=== PATIENT | female | born 1960 | race Caucasian/White ===

== ENCOUNTER 2017-03-26 12:38 | Inpatient (IN) | payer OTHER ==
[2017-03-26 14:12] VITALS: BMI 28.3
--- NOTE | 2017-03-26 14:50 | HP ---
CIWA Score - CIWA Score Nausea/Vomitin-Mild Nausea/No Vomiting Muscle Tremors: 4-Moderate,w/Arms Extend Anxiety: 4-Mod. Anxious/Guarded Agitation: 1-Slight > Activity Paroxysmal Sweats: 1-Minimal Palms Moist Orientation: 1-Uncertain about Date Tacttile Disturbances: 1-Very Mild Itch/Numbness Auditory Disturbances: 1-Very Mild Visual Disturbances: 1-Very Mild Sensitivity Headache: 1-Very Mild CIWA-Ar Total Score: 16 Admission ROS S - HPI Chief Complaint: I need detox from alcohol , from crack and dope. I don't want to lose myapartment. Allergies/Adverse Reactions: Allergies Allergy/AdvReac Type Severity Reaction Status Date / Time No Known Allergies Allergy Verified 03/26/17 14:39 History of Present Illness: 56 yo woman here for detox from alcohol - using heroin but on [facility] program - [facility] [phone] - patient did not bring bottle from program nor was she dosed today - only on 12mg - states 'it is okay' if we cannot give her any methadone. No seizure but does have black outs. Using walker due to knee problems .Although patient states she is prescribed klonopin and percocet, neither show up in the [facility]. Exam Limitations: Clinical Condition - Ebola screening Have you traveled outside of the country in the last 21 days: No Have you had contact with anyone from an Ebola affected area: No Have you been sick,other than usual withdrawal symptoms: No Do you have a fever: No - Review of Systems Constitutional: Loss of Appetite, Changes in sleep, Weakness EENT: reports: Blurred Vision Respiratory: reports: No Symptoms reported Cardiac: reports: No Symptoms Reported GI: reports: Nausea, Poor Appetite : reports: Dysuria Musculoskeletal: reports: Joint Pain, Joint Stiffness (knees) Integumentary: reports: No Symptoms Reported Neuro: reports: Headache Endocrine: reports: No Symptoms Reported Hematology: reports: No Symptoms Reported Psychiatric: reports: Judgement Intact, Mood/Affect Appropiate, Anxious Other Systems: Reviewed and Negative Patient History - Patient Medical History Hx Anemia: No Hx Asthma: Yes Hx Chronic Obstructive Pulmonary Disease (COPD): No Hx Cancer: No Hx Cardiac Disorders: No Hx Congestive Heart Failure: No Hx Hypertension: Yes Hx Hypercholesterolemia: No Hx Pacemaker: No HX Cerebrovascular Accident: No Hx Seizures: No Hx Dementia: No Hx Diabetes: Yes (oral meds) Hx Gastrointestinal Disorders: No Hx Liver Disease: No Hx Genitourinary Disorders: No Hx Sexually Transmitted Disorders: No Hx Renal Disease (ESRD): No Hx Thyroid Disease: No Hx Human Immunodeficiency Virus (HIV): Yes Hx Hepatitis C: Yes (not treated) Hx Depression: Yes (with anxiety, last hospitalized 2015) Hx Suicide Attempt: No Hx Bipolar Disorder: No Hx Schizophrenia: Yes (sometimes hears voices) - Patient Surgical History Past Surgical History: Yes Hx Orthopedic Surgery: Yes (bilateral knee replacement 1999- ) - PPD History Previous Implant?: Yes Implanted On Prior [facility] Admission?: Yes PPD to be Administered?: Yes - Reproductive History Patient is a Female of Child Bearing Age (11 -55 yrs old): Yes - Smoking Cessation Smoking history: Current every day smoker Have you smoked in the past 12 months: Yes Aproximately how many cigarettes per day: 20 Initiated information on smoking cessation: Yes 'Breaking Loose' booklet given: 03/26/17 (give on floor) - Substance & Tx. History Hx Alcohol Use: Yes Hx Substance Use: Yes Substance Use Type: Alcohol, Cocaine - Substances Abused Alcohol Route: Oral Amount used: seven 24 oz beer, 1/2 pint liquor Age of first use: 55 Date of Last Use: 03/25/17 Cocaine Route: Inhalation Frequency: 3-6 times per week Amount used: $50 Age of first use: 56 Date of Last Use: 03/25/17 Heroin Route: Oral Frequency: 3-6 times per week Amount used: 8 bags Age of first use: 56 Date of Last Use: 03/25/17 Family Disease History - Family Disease History Family Disease History: Diabetes: Brother (three - living ), Sister (one - living ), Heart Disease: Father (), Brother, [place]: Mother (living, HIV), Other: Father, Mother, Brother, Sister Admission Physical Exam BHS - Vital Signs Vital Signs: Vital Signs - 24 hr 03/26/17 14:08 Temperature 97.4 F L Pulse Rate 84 Respiratory 18 Rate Blood Pressure 108/67 - Physical General Appearance: Yes: Nourished, Appropriately Dressed, Mild Distress, Anxious HEENTM: Yes: EOMI, Hearing grossly Normal, Normal ENT Inspection, Normocephalic , Normal Voice Respiratory: Yes: Normal Breath Sounds, No Respiratory Distress Neck: Yes: No masses,lesions,Nodules, Supple Breast: Yes: Breast Exam Deferred Cardiology: Yes: Regular Rhythm, Regular Rate Abdominal: Yes: Soft Genitourinary: Yes: Frequency Back: Yes: Normal Inspection Musculoskeletal: Yes: Gait Steady, Joint Stiffness (knees), Other (using walker) Extremities: Yes: Other (mild swelling in knees) Neurological: Yes: Fully Oriented, Alert, Normal Mood/Affect, Normal Response Integumentary: Yes: Normal Color, Warm Lymphatic: Yes: Within Normal Limits - Diagnostic (1) Alcohol dependence with uncomplicated withdrawal Current Visit: Yes Status: Acute (2) Crack cocaine use Current Visit: Yes Status: Chronic (3) Methadone maintenance therapy patient Current Visit: Yes Status: Chronic Comment: [facility] in [place] - did not get dose today, does not have her bottles [phone] (4) Asthma Current Visit: Yes Status: Acute Qualifiers: Asthma severity: moderate (5) Diabetes mellitus treated with oral medication Current Visit: Yes Status: Chronic (6) HIV (human immunodeficiency virus infection) Current Visit: Yes Status: Chronic (7) History of bilateral knee replacement Current Visit: Yes Status: Chronic (8) Nicotine dependence Current Visit: Yes Status: Chronic Qualifiers: Nicotine product type: cigarettes Substance use status: uncomplicated Qualified Code(s): F17.210 - Nicotine dependence, cigarettes, uncomplicated Cleared for Admission [facility] - Detox or Rehab [facility] Level of Care: Medically Managed Detox Regimen/Protocol: Librium [facility] Breath Alcohol Content Breath Alcohol Content: 0 Urine Pregancy Test - Result Urine Test Results: Negative- NO Line Present Urine Drug Screen - Results Drug Screen Negative: No Urine Drug Screen Results: FAY-Cocaine, OPI-Opiates, MTD-Methadone
[2017-03-26] MEDS ORDERED: hydrOXYzine PAMOATE 25 MG CAPSULE (FP) PO PRN (15:07)
[2017-03-26] MEDS ORDERED: guaiFENesin/D-METHORPHAN HB 10 ML UNIT-DOSE CUPS PO PRN (15:07)
[2017-03-26] MEDS ORDERED: MAGNESIUM CITRATE 300 ML BOTTLE PO PRN (15:07)
[2017-03-26] MEDS ORDERED: MENTHOL/PHENOL 1 EACH UD MM PRN (15:07)
[2017-03-26] MEDS ORDERED: chlordiazePOXIDE HCL 25 MG CAPSULE PO PRN (15:07)
[2017-03-26] MEDS ORDERED: P-EPHED 60MG/TRIPROLIDI 2.5MG TABLET PO PRN (15:07)
[2017-03-26] MEDS ORDERED: LOPERAMIDE HCL 2 MG CAPSULE PO PRN (15:07)
[2017-03-26] MEDS ORDERED: MAGNESIUM HYDROX 2400MG/30ML ORAL SUSPENSION 30 ML CUP PO PRN (15:07)
[2017-03-26] MEDS ORDERED: MAG HYDROX/AL HYDROX/SIMETH 30 ML UNIT-DOSE CUP PO PRN (15:07)
[2017-03-26] MEDS ORDERED: chlordiazePOXIDE HCL 25 MG CAPSULE PO ONE (15:07)
[2017-03-26] MEDS ORDERED: ALBUTEROL SO4 18 GM HFA INHALER IH PRN (15:09)
[2017-03-26] MEDS ORDERED: metFORMIN HCL 500 MG TABLET (FP) PO SCH (15:15)
[2017-03-26 21:34] LABS: URINE APPEARANCE SLCLOUDY; URINE BILIRUBIN NEGATIVE (NEGATIVE); URINE BLOOD NEGATIVE (NEGATIVE); URINE COLOR YELLOW; URINE GLUCOSE (UA) NEGATIVE (NEGATIVE); URINE KETONE NEGATIVE (NEGATIVE); URINE LEUK ESTERASE NEGATIVE (NEGATIVE); URINE NITRITE NEGATIVE (NEGATIVE); URINE PROTEIN NEGATIVE (NEGATIVE)
[2017-03-26] MEDS: EMTRICITAB/RILPIVIRINE/TENOFOV 1 EACH TABLET PO SCH (22:14)
[2017-03-26] MEDS: chlordiazePOXIDE HCL 25 MG CAPSULE PO SCH (22:15)
[2017-03-26] MEDS: METHYL SALICYLATE/MENTHOL OINT 30 GM TUBE TP SCH (22:15)
[2017-03-26] MEDS: THIAMINE HCL 100 MG TABLET (FP) PO SCH (22:15)
[2017-03-26] MEDS: NICOTINE 21 MG/24 HOURS TOPICAL PATCH TD SCH (22:16)
[2017-03-27] MEDS: IBUPROFEN 400 MG TABLET (FP) PO PRN (05:19)
[2017-03-27] MEDS: metFORMIN HCL 500 MG TABLET (FP) PO SCH (06:20)
[2017-03-27] MEDS: chlordiazePOXIDE HCL 25 MG CAPSULE PO SCH ×4 (06:23→22:22)
[2017-03-27 10:06] LABS: HEMATOCRIT 38.6 % (32.4-45.2); MCH 28.6 pg (25.7-33.7); MCHC 33.6 g/dl (32.0-36.0); MEAN PLT VOLUME 8.6 fl (7.5-11.1); PLATELET COUNT 67 K/MM3 (134-434); RBC 4.54 M/mm3 (3.60-5.2); RDW 15.3 % (11.6-15.6); WHITE BLOOD COUNT 4.5 K/mm3 (4.0-10.0)
[2017-03-27 10:32] LABS: CHLORIDE 107 mmol/L (98-107); POTASSIUM 3.7 mmol/L (3.5-5.1); SODIUM 141 mmol/L (136-145)
[2017-03-27 10:40] LABS: ALK PHOS 81 U/L (45-117); ANION GAP 7 (8-16); BILIRUBIN,TOTAL 0.6 mg/dL (0.2-1.0); BLOOD UREA NITROGEN 8 mg/dL (7-18); CALCIUM 8.2 mg/dL (8.5-10.1); CO2 27 mmol/L (21-32); CREATININE 0.6 mg/dL (0.55-1.02); GLUCOSE,RANDOM 128 mg/dL (74-106); SGOT/AST 25 U/L (15-37); SGPT/ALT 33 U/L (12-78); TOT PROT 6.9 g/dl (6.4-8.2)
[2017-03-27] MEDS: METHYL SALICYLATE/MENTHOL OINT 30 GM TUBE TP SCH ×2 (11:00→22:22)
[2017-03-27] MEDS: PRENATAL VITAMINS W/ FOLIC ACID TABLET (FP) PO SCH (11:00)
[2017-03-27] MEDS: NICOTINE 21 MG/24 HOURS TOPICAL PATCH TD SCH (11:00)
[2017-03-27] MEDS: EMTRICITAB/RILPIVIRINE/TENOFOV 1 EACH TABLET PO SCH (11:00)
--- NOTE | 2017-03-27 11:03 | CONSULT ---
[facility] Psychiatric Consult - Data Date of interview: 03/27/17 Admission source: Self-referred Identifying data: Ms Trejo is a 56 years old female Substance Abuse History: Reports history of alcohol, heroin and cocaine use. Refer to addiction counselor's note for furtherv information Medical History: Significant for bronchial asthma, hypertension, type 2 diabetes mellitus, hepatitis C, HIV, arthritis and history of orthosurgery for bilateral knee replacement in 1999. She is on methadone 12 mg/day. Smokes cigarettes 1ppd Psychiatric History: Patient reports history of depression and anxiety. Reports receiving psychiatric outpatient services at one of [facility] in the [place] and he is prescribed Seroquel 100 mg po HS and Ambien 10 mg po HS. Denies history of previous psychiatric hospitalization or suicidal attempt. At present , reports feeling depressed and sleeping poorly Physical/Sexual Abuse/Trauma History: Denies history of physical, sexual abuse Additional Comment: Denies criminal history Mental Status Exam - Mental Status Exam Alert and Oriented to: Place, Person Cognitive Function: Fair Patient Appearance: Well Groomed Mood: Depressed Patient Behavior: Cooperative Speech Pattern: Clear Voice Loudness: Normal Thought Process: Intact, Goal Oriented Thought Disorder: Not Present Hallucinations: Denies Suicidal Ideation: Denies Homicidal Ideation: Denies Insight/Judgement: Poor Sleep: Poorly Appetite: Poor Muscle strength/Tone: Normal Gait/Station: Normal Psychiatric Findings - Problem List ([place] 1, 2,3) (1) Substance induced mood disorder Current Visit: Yes Status: Acute (2) MDD (major depressive disorder) Current Visit: Yes Status: Ruled-out (3) Substance-induced sleep disorder Current Visit: Yes Status: Acute (4) Alcohol dependence with uncomplicated withdrawal Current Visit: Yes Status: Acute (5) Cocaine dependence Current Visit: Yes Status: Acute (6) Opioid dependence on agonist therapy Current Visit: Yes Status: Chronic (7) Nicotine dependence Current Visit: Yes Status: Chronic Qualifiers: Nicotine product type: cigarettes Substance use status: uncomplicated Qualified Code(s): F17.210 - Nicotine dependence, cigarettes, uncomplicated (8) Asthma Current Visit: Yes Status: Acute Qualifiers: Asthma severity: moderate (9) Diabetes mellitus treated with oral medication Current Visit: Yes Status: Chronic (10) HIV (human immunodeficiency virus infection) Current Visit: Yes Status: Chronic (11) History of bilateral knee replacement Current Visit: Yes Status: Chronic - Initial Treatment Plan Initial Treatment Plan: 1) Continue Seroquel 100 mg po HS and Ambien 10 mg po HS prn for insomnia. 2) Continue inpatient detoxification
--- NOTE | 2017-03-27 13:06 | PN ---
[facility] CIWA - CIWA Score Nausea/Vomitin-No Nausea/No Vomiting Muscle Tremors: 3 Anxiety: 3 Agitation: 3 Paroxysmal Sweats: 1-Minimal Palms Moist Orientation: 0-Oriented Tacttile Disturbances: 0-None Auditory Disturbances: 0-None Visual Disturbances: 0-None Headache: 0-None Present CIWA-Ar Total Score: 10 S Progress Note (SOAP) Subjective: sweat anxiety tremor Objective: 03/27/17 13:06 Vital Signs Temperature 98.1 F 03/27/17 10:00 Pulse Rate 74 03/27/17 10:00 Respiratory Rate 19 03/27/17 10:00 Blood Pressure 117/76 03/27/17 10:00 O2 Sat by Pulse Oximetry (%) Laboratory Last Values WBC 4.5 K/mm3 (4.0-10.0) 03/27/17 07:30 RBC 4.54 M/mm3 (3.60-5.2) 03/27/17 07:30 Hgb 13.0 GM/dL (10.7-15.3) 03/27/17 07:30 Hct 38.6 % (32.4-45.2) 03/27/17 07:30 MCV 85.0 fl (80-96) 03/27/17 07:30 MCH 28.6 pg (25.7-33.7) 03/27/17 07:30 MCHC 33.6 g/dl (32.0-36.0) 03/27/17 07:30 RDW 15.3 % (11.6-15.6) 03/27/17 07:30 Plt Count 67 K/MM3 (134-434) L 03/27/17 07:30 MPV 8.6 fl (7.5-11.1) 03/27/17 07:30 Sodium 141 mmol/L (136-145) 03/27/17 07:30 Potassium 3.7 mmol/L (3.5-5.1) 03/27/17 07:30 Chloride 107 mmol/L (98-107) 03/27/17 07:30 Carbon Dioxide 27 mmol/L (21-32) 03/27/17 07:30 Anion Gap 7 (8-16) L 03/27/17 07:30 BUN 8 mg/dL (7-18) 03/27/17 07:30 Creatinine 0.6 mg/dL (0.55-1.02) 03/27/17 07:30 Creat Clearance w eGFR > 60 (>60) 03/27/17 07:30 POC Glucometer 116 UNITS (80-120) 03/27/17 06:17 Random Glucose 128 mg/dL (74-106) H 03/27/17 07:30 Calcium 8.2 mg/dL (8.5-10.1) L 03/27/17 07:30 Total Bilirubin 0.6 mg/dL (0.2-1.0) 03/27/17 07:30 AST 25 U/L (15-37) 03/27/17 07:30 ALT 33 U/L (12-78) 03/27/17 07:30 Alkaline Phosphatase 81 U/L (45-117) 03/27/17 07:30 Total Protein 6.9 g/dl (6.4-8.2) 03/27/17 07:30 Albumin 3.0 g/dl (3.4-5.0) L 03/27/17 07:30 Urine Color Yellow 03/26/17 16:00 Urine Appearance Slcloudy 03/26/17 16:00 Urine pH 6.0 (5.0-8.0) 03/26/17 16:00 Ur Specific [place] 1.016 (1.001-1.035) 03/26/17 16:00 Urine Protein Negative (NEGATIVE) 03/26/17 16:00 Urine Glucose (UA) Negative (NEGATIVE) 03/26/17 16:00 Urine Ketones Negative (NEGATIVE) 03/26/17 16:00 Urine Blood Negative (NEGATIVE) 03/26/17 16:00 Urine Nitrite Negative (NEGATIVE) 03/26/17 16:00 Urine Bilirubin Negative (NEGATIVE) 03/26/17 16:00 Urine Urobilinogen 2.0 mg/dL (0.2-1.0) H 03/26/17 16:00 Ur Leukocyte Esterase Negative (NEGATIVE) 03/26/17 16:00 RPR Titer Nonreactive (NONREACTIVE) 03/27/17 07:30 lab noted Assessment: 03/27/17 13:06 withdrawal sx Plan: continue detox
[2017-03-27] MEDS: THIAMINE HCL 100 MG TABLET (FP) PO SCH (22:22)
[2017-03-27] MEDS: QUEtiapine FUMARATE 100 MG TABLET (FP) PO SCH (22:22)
[2017-03-27] MEDS: ZOLPIDEM TARTRATE 5 MG TABLET PO PRN (22:22)
[2017-03-28] MEDS: chlordiazePOXIDE HCL 25 MG CAPSULE PO SCH ×3 (05:26→20:27)
[2017-03-28] MEDS: metFORMIN HCL 500 MG TABLET (FP) PO SCH (06:32)
[2017-03-28] MEDS: ACETAMINOPHEN 325 MG TABLET (FP) PO PRN (08:26)
[2017-03-28] MEDS: METHYL SALICYLATE/MENTHOL OINT 30 GM TUBE TP SCH ×2 (10:25→22:14)
[2017-03-28] MEDS: LIDOCAINE 5% TOPICAL PATCH TP SCH (10:26)
[2017-03-28] MEDS: NICOTINE 21 MG/24 HOURS TOPICAL PATCH TD SCH (10:26)
[2017-03-28] MEDS: PRENATAL VITAMINS W/ FOLIC ACID TABLET (FP) PO SCH (10:27)
[2017-03-28] MEDS: EMTRICITAB/RILPIVIRINE/TENOFOV 1 EACH TABLET PO SCH (10:27)
--- NOTE | 2017-03-28 11:10 | PN ---
S CIWA - CIWA Score Nausea/Vomitin Muscle Tremors: 3 Anxiety: 3 Agitation: 3 Paroxysmal Sweats: 1-Minimal Palms Moist Orientation: 0-Oriented Tacttile Disturbances: 1-Very Mild Itch/Numbness Auditory Disturbances: 1-Very Mild Visual Disturbances: 0-None Headache: 2-Mild CIWA-Ar Total Score: 17 BHS Progress Note (SOAP) Subjective: ALERT,IRRITABLE,ANXIOUS,INTERRUPTED SLEEP,TREMOR,PAIN IN TH BODY,BOTH KNEES Objective: 03/28/17 11:07 Vital Signs Temperature 97.9 F 03/28/17 06:00 Pulse Rate 113 H 03/28/17 06:00 Respiratory Rate 18 03/28/17 06:00 Blood Pressure 106/74 03/28/17 06:00 O2 Sat by Pulse Oximetry (%) EKG NSR WITH SINUS ARRHYTHMIA NORMAL ECG 03/28/17 11:08 Laboratory Last Values WBC 4.5 K/mm3 (4.0-10.0) 03/27/17 07:30 RBC 4.54 M/mm3 (3.60-5.2) 03/27/17 07:30 Hgb 13.0 GM/dL (10.7-15.3) 03/27/17 07:30 Hct 38.6 % (32.4-45.2) 03/27/17 07:30 MCV 85.0 fl (80-96) 03/27/17 07:30 MCH 28.6 pg (25.7-33.7) 03/27/17 07:30 MCHC 33.6 g/dl (32.0-36.0) 03/27/17 07:30 RDW 15.3 % (11.6-15.6) 03/27/17 07:30 Plt Count 67 K/MM3 (134-434) L 03/27/17 07:30 MPV 8.6 fl (7.5-11.1) 03/27/17 07:30 Sodium 141 mmol/L (136-145) 03/27/17 07:30 Potassium 3.7 mmol/L (3.5-5.1) 03/27/17 07:30 Chloride 107 mmol/L (98-107) 03/27/17 07:30 Carbon Dioxide 27 mmol/L (21-32) 03/27/17 07:30 Anion Gap 7 (8-16) L 03/27/17 07:30 BUN 8 mg/dL (7-18) 03/27/17 07:30 Creatinine 0.6 mg/dL (0.55-1.02) 03/27/17 07:30 Creat Clearance w eGFR > 60 (>60) 03/27/17 07:30 POC Glucometer 106 UNITS (80-120) 03/28/17 05:24 Random Glucose 128 mg/dL (74-106) H 03/27/17 07:30 Calcium 8.2 mg/dL (8.5-10.1) L 03/27/17 07:30 Total Bilirubin 0.6 mg/dL (0.2-1.0) 03/27/17 07:30 AST 25 U/L (15-37) 03/27/17 07:30 ALT 33 U/L (12-78) 03/27/17 07:30 Alkaline Phosphatase 81 U/L (45-117) 03/27/17 07:30 Total Protein 6.9 g/dl (6.4-8.2) 03/27/17 07:30 Albumin 3.0 g/dl (3.4-5.0) L 03/27/17 07:30 Urine Color Yellow 03/26/17 16:00 Urine Appearance Slcloudy 03/26/17 16:00 Urine pH 6.0 (5.0-8.0) 03/26/17 16:00 Ur Specific [place] 1.016 (1.001-1.035) 03/26/17 16:00 Urine Protein Negative (NEGATIVE) 03/26/17 16:00 Urine Glucose (UA) Negative (NEGATIVE) 03/26/17 16:00 Urine Ketones Negative (NEGATIVE) 03/26/17 16:00 Urine Blood Negative (NEGATIVE) 03/26/17 16:00 Urine Nitrite Negative (NEGATIVE) 03/26/17 16:00 Urine Bilirubin Negative (NEGATIVE) 03/26/17 16:00 Urine Urobilinogen 2.0 mg/dL (0.2-1.0) H 03/26/17 16:00 Ur Leukocyte Esterase Negative (NEGATIVE) 03/26/17 16:00 RPR Titer Nonreactive (NONREACTIVE) 03/27/17 07:30 Assessment: 03/28/17 11:08 WITHDRAWAL SYMPTOM Plan: CONTINUE DETOX,BGM MONITORING, 5%LIDODERM PATCHES BOTH KNEES
--- NOTE | 2017-03-28 11:48 | EKG ---
Test Reason : Blood Pressure : / mmHG Vent. Rate : 076 BPM Atrial Rate : 076 BPM P-R Int : 176 ms QRS Dur : 068 ms QT Int : 394 ms P-R-T Axes : 058 037 055 degrees QTc Int : 443 ms NORMAL SINUS RHYTHM WITH SINUS ARRHYTHMIA NORMAL ECG NO PREVIOUS ECGS AVAILABLE Confirmed by RENETTA JEAN BAPTISTE MD ([id number]) on 03/28/2017 11:48:22 AM Referred By: Enrrique Bentley Confirmed By:RENETTA JEAN BAPTISTE MD
[2017-03-28] MEDS: ZOLPIDEM TARTRATE 5 MG TABLET PO PRN (22:11)
[2017-03-28] MEDS: QUEtiapine FUMARATE 100 MG TABLET (FP) PO SCH (22:11)
[2017-03-28] MEDS: chlordiazePOXIDE 5 MG CAPSULE PO SCH (22:11)
[2017-03-28] MEDS: THIAMINE HCL 100 MG TABLET (FP) PO SCH (22:11)
[2017-03-28] MEDS: LIDOCAINE PATCH REMOVAL MC SCH (22:14)
[2017-03-29] MEDS: IBUPROFEN 400 MG TABLET (FP) PO PRN ×2 (02:28→12:35)
[2017-03-29] MEDS: chlordiazePOXIDE 5 MG CAPSULE PO SCH ×4 (05:13→18:21)
[2017-03-29] MEDS: metFORMIN HCL 500 MG TABLET (FP) PO SCH (07:53)
[2017-03-29] MEDS: PRENATAL VITAMINS W/ FOLIC ACID TABLET (FP) PO SCH (10:17)
[2017-03-29] MEDS: EMTRICITAB/RILPIVIRINE/TENOFOV 1 EACH TABLET PO SCH (10:18)
[2017-03-29] MEDS: NICOTINE 21 MG/24 HOURS TOPICAL PATCH TD SCH (10:21)
[2017-03-29] MEDS: METHYL SALICYLATE/MENTHOL OINT 30 GM TUBE TP SCH ×3 (10:21→22:34)
[2017-03-29] MEDS: LIDOCAINE 5% TOPICAL PATCH TP SCH (10:21)
[2017-03-29] MEDS ORDERED: METHADONE HCL 10 MG TABLET PO ONE (10:30)
--- NOTE | 2017-03-29 11:43 | PN ---
S Progress Note (SOAP) Subjective: Interrupted sleep, body aches, nausea, sweats, chills, tremors Objective: 03/29/17 11:41 Last Vital Signs Temp Pulse Resp BP Pulse Ox 95.7 F L 97 H 18 116/75 03/29/17 10:13 03/29/17 10:13 03/29/17 10:13 03/29/17 10:13 Laboratory Last Values WBC 4.5 K/mm3 (4.0-10.0) 03/27/17 07:30 RBC 4.54 M/mm3 (3.60-5.2) 03/27/17 07:30 Hgb 13.0 GM/dL (10.7-15.3) 03/27/17 07:30 Hct 38.6 % (32.4-45.2) 03/27/17 07:30 MCV 85.0 fl (80-96) 03/27/17 07:30 MCH 28.6 pg (25.7-33.7) 03/27/17 07:30 MCHC 33.6 g/dl (32.0-36.0) 03/27/17 07:30 RDW 15.3 % (11.6-15.6) 03/27/17 07:30 Plt Count 67 K/MM3 (134-434) L 03/27/17 07:30 MPV 8.6 fl (7.5-11.1) 03/27/17 07:30 Sodium 141 mmol/L (136-145) 03/27/17 07:30 Potassium 3.7 mmol/L (3.5-5.1) 03/27/17 07:30 Chloride 107 mmol/L (98-107) 03/27/17 07:30 Carbon Dioxide 27 mmol/L (21-32) 03/27/17 07:30 Anion Gap 7 (8-16) L 03/27/17 07:30 BUN 8 mg/dL (7-18) 03/27/17 07:30 Creatinine 0.6 mg/dL (0.55-1.02) 03/27/17 07:30 Creat Clearance w eGFR > 60 (>60) 03/27/17 07:30 POC Glucometer 117 UNITS (80-120) 03/29/17 05:15 Random Glucose 128 mg/dL (74-106) H 03/27/17 07:30 Calcium 8.2 mg/dL (8.5-10.1) L 03/27/17 07:30 Total Bilirubin 0.6 mg/dL (0.2-1.0) 03/27/17 07:30 AST 25 U/L (15-37) 03/27/17 07:30 ALT 33 U/L (12-78) 03/27/17 07:30 Alkaline Phosphatase 81 U/L (45-117) 03/27/17 07:30 Total Protein 6.9 g/dl (6.4-8.2) 03/27/17 07:30 Albumin 3.0 g/dl (3.4-5.0) L 03/27/17 07:30 Urine Color Yellow 03/26/17 16:00 Urine Appearance Slcloudy 03/26/17 16:00 Urine pH 6.0 (5.0-8.0) 03/26/17 16:00 Ur Specific [place] 1.016 (1.001-1.035) 03/26/17 16:00 Urine Protein Negative (NEGATIVE) 03/26/17 16:00 Urine Glucose (UA) Negative (NEGATIVE) 03/26/17 16:00 Urine Ketones Negative (NEGATIVE) 03/26/17 16:00 Urine Blood Negative (NEGATIVE) 03/26/17 16:00 Urine Nitrite Negative (NEGATIVE) 03/26/17 16:00 Urine Bilirubin Negative (NEGATIVE) 03/26/17 16:00 Urine Urobilinogen 2.0 mg/dL (0.2-1.0) H 03/26/17 16:00 Ur Leukocyte Esterase Negative (NEGATIVE) 03/26/17 16:00 RPR Titer Nonreactive (NONREACTIVE) 03/27/17 07:30 Labs noted Assessment: 03/29/17 11:42 withdrawal symptoms Plan: Continue detox
--- NOTE | 2017-03-29 14:07 | PN ---
BHS Progress Note (SOAP) Subjective: Patient c/o of feeling her blood sugar was elevated. Objective: 03/29/17 14:05 BGM = 115 Assessment: 03/29/17 14:06 Patient asymptomatic and stable, no signs and symptoms of hypo / hyperglycemia present Plan: Increase fluids Continue to monitor
[2017-03-29] MEDS: THIAMINE HCL 100 MG TABLET (FP) PO SCH (22:32)
[2017-03-29] MEDS: QUEtiapine FUMARATE 100 MG TABLET (FP) PO SCH (22:32)
[2017-03-29] MEDS: ACETAMINOPHEN 325 MG TABLET (FP) PO PRN (22:32)
[2017-03-29] MEDS: ZOLPIDEM TARTRATE 5 MG TABLET PO PRN (22:33)
[2017-03-29] MEDS: chlordiazePOXIDE HCL 10 MG CAPSULE PO SCH (22:35)
[2017-03-29] MEDS: LIDOCAINE PATCH REMOVAL MC SCH (22:35)
[2017-03-30] MEDS: IBUPROFEN 400 MG TABLET (FP) PO PRN (02:20)
[2017-03-30] MEDS: chlordiazePOXIDE HCL 10 MG CAPSULE PO SCH (05:30)
[2017-03-30] MEDS ORDERED: METHADONE HCL 10 MG TABLET PO SCH (06:00)
[2017-03-30] MEDS: metFORMIN HCL 500 MG TABLET (FP) PO SCH (06:44)
--- NOTE | 2017-03-30 08:57 | DS ---
[facility] Detox Discharge Summary Admission Date: 03/26/17 Discharge Date: 03/30/17 - History Present History: Alcohol Dependence, Cocaine Dependence, Opioid Dependence - Physical Exam Results Vital Signs: Vital Signs Temperature 98.2 F 03/30/17 07:07 Pulse Rate 97 H 03/30/17 07:07 Respiratory Rate 16 03/30/17 07:07 Blood Pressure 89/51 03/30/17 07:07 O2 Sat by Pulse Oximetry (%) - Treatment Hospital Course: Detox Protocol Followed, Detoxed Safely, Responded well, Discharged Condition Good - Medication Discharge Medications: Ambulatory Orders Albuterol Sulfate Inhaler - [Ventolin Hfa Inhaler -] 2 inh PO Q4H PRN 03/26/17 Emtricitab/Rilpivirine/Tenofov [Complera -] 1 each PO DAILY 03/26/17 Metformin HCl [Glucophage -] 500 mg PO DAILY 03/26/17 Quetiapine Fumarate [Seroquel] 100 tab PO HS 03/26/17 Zolpidem Tartrate [Ambien] 10 mg PO HS 03/26/17 - Diagnosis (1) Alcohol dependence with uncomplicated withdrawal Current Visit: Yes Status: Chronic (2) Asthma Current Visit: Yes Status: Chronic Qualifiers: Asthma severity: mild Asthma persistence: intermittent Asthma complication type: uncomplicated Qualified Code(s): J45.20 - Mild intermittent asthma, uncomplicated (3) Cocaine dependence Current Visit: Yes Status: Chronic Qualifiers: Substance use status: uncomplicated Qualified Code(s): F14.20 - Cocaine dependence, uncomplicated (4) Walker as ambulation aid Current Visit: Yes Status: Chronic (5) Diabetes mellitus treated with oral medication Current Visit: Yes Status: Chronic (6) History of bilateral knee replacement Current Visit: Yes Status: Chronic (7) Methadone maintenance therapy patient Current Visit: Yes Status: Chronic - AMA Did Patient Leave Against Medical Advice: No
[2017-03-30] MEDS: ACETAMINOPHEN 325 MG TABLET (FP) PO PRN (09:25)
[2017-03-30] MEDS: EMTRICITAB/RILPIVIRINE/TENOFOV 1 EACH TABLET PO SCH (09:26)
[2017-03-30] MEDS: PRENATAL VITAMINS W/ FOLIC ACID TABLET (FP) PO SCH (09:26)
[2017-03-30] MEDS: NICOTINE 21 MG/24 HOURS TOPICAL PATCH TD SCH (09:28)
[2017-03-30] MEDS: LIDOCAINE 5% TOPICAL PATCH TP SCH (09:28)
[2017-03-30 12:18] VITALS: BP 89/64; PULSE 104; TEMP 98.6
== END 2017-03-30 11:26 | disposition home or self-care (01) | DRG 773 ==
LOC: YASAS 12:38 → Y6N 15:32
PROVIDERS: ADMIT Internal Medicine; ATTEND Internal Medicine
PROC: HZ2ZZZZ Detoxification Services for Substance Abuse Treatment (ICD-10-PCS; principal; 2017-03-26)
DX: F10.230 Alcohol dependence with withdrawal, uncomplicated (principal); F11.20 Opioid dependence, uncomplicated; F14.20 Cocaine dependence, uncomplicated; F17.210 Nicotine dependence, cigarettes, uncomplicated; F19.24 Other psychoactive substance dependence with psychoactive substance-induced mood disorder; F19.282 Other psychoactive substance dependence with psychoactive substance-induced sleep disorder; J45.20 Mild intermittent asthma, uncomplicated; E11.9 Type 2 diabetes mellitus without complications; L49.9 Exfoliation due to erythematous condition involving 90 or more percent of body surface; B18.2 Chronic viral hepatitis C; Z21 Asymptomatic human immunodeficiency virus [HIV] infection status; I10 Essential (primary) hypertension; R26.2 Difficulty in walking, not elsewhere classified; Z99.89 Dependence on other enabling machines and devices; Z96.653 Presence of artificial knee joint, bilateral; Z79.84 Long term (current) use of oral hypoglycemic drugs
CPT/HCPCS: 36415; 80053; 81003; 82962; 85027; 86593; 93005; 93010